=== PATIENT | male | born 1980 | race Caucasian/White ===

== ENCOUNTER 2021-05-06 08:00 | Outpatient (CLI) | payer SELFPAY | END 2021-05-06 23:59 | LOC: LAB.N 08:00 | PROVIDERS: ATTEND Nurse Practitioner | DX: J06.9 Acute upper respiratory infection, unspecified (principal); Z20.822 Contact with and (suspected) exposure to COVID-19 ==

== ENCOUNTER 2021-07-02 08:00 | Outpatient (CLI) | payer SELFPAY ==
[2021-07-02 23:46] LABS: CHLAMYDIA TRACHOMATIS DNA NEGATIVE (NEGATIVE); NEISSERIA GONORRHOEAE DNA NEGATIVE (NEGATIVE)
[2021-07-04 04:13] LABS: HCV AB <0.1 s/co ratio (0.0-0.9)
[2021-07-04 06:12] LABS: HIV SCREEN 4TH GENERATION Non Reactive (Non Reactive); RPR Non Reactive (Non Reactive)
[2021-07-04 08:12] LABS: HSV 1 IGG TYPE SPEC <0.91 index (0.00-0.90); HSV 2 IGG TYPE SPEC <0.91 index (0.00-0.90)
[2021-07-04 19:07] LABS: HSV IGM I/II COMBINATION <0.91 Ratio (0.00-0.90)
== END 2021-07-02 23:59 | disposition home or self-care (01) ==
LOC: LAB.N 08:00
PROVIDERS: ATTEND Nurse Practitioner
DX: Z11.3 Encounter for screening for infections with a predominantly sexual mode of transmission (principal)
CPT/HCPCS: 36415; 86592; 86695; 86696; 86803; 87389; 87491; 87591; 87661

== ENCOUNTER 2021-11-06 22:50 | Outpatient (CLI) | payer OTHER | END 2021-11-06 22:51 | disposition short-term general hospital (02) | LOC: EMS 22:50 | DX: I46.9 Cardiac arrest, cause unspecified (principal) | CPT/HCPCS: A0425; A0433 ==